=== PATIENT | male | born 1980 | race Two or more races ===

== ENCOUNTER 2020-05-31 11:52 | Emergency (ER) | payer SELFPAY ==
[~2020-05-31] VITALS: Ht 182.9 cm; Wt 85.0 kg
[2020-05-31 11:58] VITALS: BP 151/91
[2020-05-31] MEDS ORDERED: NEOSPORIN OINT. PKT 1 PACKET ONE (12:11)
[2020-05-31] MEDS ORDERED: DIPH,PERTUSS(ACELL),TET VAC/PF 0.5 ML IM-VACC ONE ×2 (12:17→12:30)
== END 2020-05-31 12:24 | disposition home or self-care (01) ==
LOC: ED 12:00
DX: S60.511A Abrasion of right hand, initial encounter (principal); S60.411A Abrasion of left index finger, initial encounter; F17.210 Nicotine dependence, cigarettes, uncomplicated; X58.XXXA Exposure to other specified factors, initial encounter; Y93.89 Activity, other specified; Y92.89 Other specified places as the place of occurrence of the external cause; Y99.8 Other external cause status
CPT/HCPCS: 90471; 90715; 99283